=== PATIENT | female | born 1960 | race Caucasian/White ===

== ENCOUNTER 2016-10-30 19:24 | Inpatient (IN) | payer OTHER ==
[~2016-10-30] VITALS: Ht 160 cm; Wt 55.4 kg
[~2016-10-30 19:24] MED LIST: ACETAMINOPHEN650 M7 PO; ACID CONTROL75 MG; ADULT LOW DOSE81 M1 PO; ASCORBIC ACID250 MG PO; ASCORBIC ACID500 M3 PO; ASCORBIC ACID500 MG PO; ASPIRIN E.C.81 M1 PO; ATHENOL325 MG PO; ATIVAN1 MG PO; BACLOFEN10 MG PO; BACTRIM,SEPT1 TABLET PO; BICARSIM80 MG PO; BISA-LAX5 MG PO; BISAC-EVAC10 MG RC; BISACODYL SUPP10 MG PR; CALCIUM + D3 E1 EACH PO; CALCIUM 600+D1 EAC4 PO; CALCIUM 600+D31 EACH PO; CALTRATE 6001 TABLET PO; CENTRAL VITE T1 EACH PO; CHRONULAC,CEPHU30 ML PO; CIPRODEX OTIC7.5 ML BOTH EARS; CITRATE OF MAG296 ML PO; COL-RITE100 MG PO; COLACE100 MG PO; COMBIVENT INH14.7 GM; Combivent IH; DESYREL12.5 MG PO; DIAZEPAM10 MG PO; DULCOLAX10 MG PR; DUODERM CGF1 EACH TP; DUONEB 2.5-0.5 M3 ML PEP; DURAGESIC25 MCG TD; Dulcolax PO; Dulcolax PR; EFFEXOR50 MG PO; FENTANYL1 EAC5 TD; FERROUS SULFAT325 MG PO; FLEET ENEMA ADULT PR; FLOVENT 22120 INHALA; FLOVENT 22120 INHALA IH; FROVA2.5 MG PO; Flovent 220 mcg IH; GAS RELIEF 8080 MG PO; GAS-X80 MG PO; GLIPIZIDE10 M1 PO; GLUCOPHAGE XR1000 MG PO; GLUCOPHAGE1000 MG PO; GLUCOPHAGE500 MG PO; GLYCOLAX17 GM PO; IRON325 MG PO; KLONOPIN1 MG PO; LANTUS 10100 UNITS/ SC; LANTUS 3 M100 UNITS/ SC; LANTUS 3 M100 UNITS1 SC; LANTUS100 UNIT/1 SQ; LIORESAL10 MG PO; LYRICA50 MG PO; MAGIC BULLET10 MG RC; METRONIDAZOLE500 MG PO; MUCINEX600 MG PO; MULTIPLE VITAM1 EACH PO; MVI; NITROSTAT0.4 MG SL; NOVOLIN 70100 UNIT/1 SQ; NOVOLOG 10100 UNITS/ SC; NOVOLOG PE100 UNITS/ SC; NOVOLOG100 UNIT/1 SQ; OYST-CAL D, OS500 M1 PO; PROAIR RESPICL90 MCG IH; ROXICODONE5 MG PO; SENNA LAXATIVE8.6 MG PO; SENNA8.6 M1 PO; SENNA8.6 MG PO; SEROQUEL12.5 MG PO; SEROQUEL200 MG PO; SORE THROAT LO1 EACH MM; THERAGRAN1 TABLET PO; THERAPEUTIC M1 EAC1 PO; TRAMADOL HCL50 MG PO; TRAZODONE HCL50 MG PO; TRICOR145 MG PO; TYLENOL325 M1 PO; ULTRAM50 MG PO; VALIUM10 MG PO; VENTOLIN HFA18 GM IH; WOMEN'S LAXATIVE5 M1 PO; ZANTAC75 M1 PO; ZANTAC75 MG PO; ZOCOR10 MG PO; ZOSYN 3.3753.375 GM IV; [UNRECOGNIZED DRUG - OTHER]; [UNRECOGNIZED DRUG - OTHER] MM; [UNRECOGNIZED DRUG - OTHER] TP; [UNRECOGNIZED DRUG - REMARK] PO
[2016-10-30 20:47] LABS: CREATININE 0.7 mg/dL (0.6-1.3); POTASSIUM 4.4 mEq/L (3.7-5.4)
[2016-10-30 20:48] LABS: MCH 28.9 PG (29.0-34.0); MCHC 33.9 G/DL (30.0-36.0); MCV 85.1 FL (83-99); MEAN PLAT.VOLUME 10.6 uM^3 (9.5-12.4); PLATELET COUNT 411 K/uL (156-360); RBC DIS.WIDTH-SD 46.1 % (39-53); RED BLOOD COUNT 3.88 M/uL (3.80-5.20); WHITE BLOOD COUNT 23.1 K/uL (4.1-10.2)
[2016-10-30 20:51] LABS: EOSINOPHIL (%) 0.1 % (0-5); IMMATURE GRANULOCYTE (%) 0.7 % (0.0-0.7); IMMATURE GRANULOCYTE COUNT 1.6 K/uL; MONOCYTE (%) 6.1 % (3-12); MONOCYTE COUNT 1.4 K/uL (0-0.8); NEUTROPHIL (%) 88.5 % (45-76); NEUTROPHIL COUNT 20.4 K/uL (1.8-6.4)
[2016-10-30 20:56] LABS: CHLORIDE 105 mEq/L (99-109); POTASSIUM 4.4 mEq/L (3.7-5.4); SODIUM 134 mEq/L (136-147)
[2016-10-30 20:58] LABS: GLUCOSE 289 mg/dL (70-99)
[2016-10-30 21:00] LABS: ANION GAP 10 MEQ/L (2-14); TOTAL BILIRUBIN 0.4 mg/dL (0.0-1.0)
[2016-10-30 21:02] LABS: ALKALINE PHOSPHATASE 55 IU/L (3-129); GFR ESTIMATE (CALCULATED) > 59 mL/min/
[2016-10-30 21:03] LABS: UREA NITROGEN (BUN) 38 mg/dL (9-23)
[2016-10-30 21:05] LABS: LIPASE 38 U/L (1.0-51.0)
[2016-10-30 21:11] LABS: TROP-I INTERPRETATION NEGATIVE; TROPONIN-I < 0.01 ng/mL (0.0-0.30)
[2016-10-30 21:21] LABS: ADD MIUA? YES; BILIRUBIN NEGATIVE; BLOOD LARGE; COLOR DK YELLOW ((YELLOW)); GLUCOSE (STRIP) NEGATIVE; KETONES TRACE; LEUKOCYTES LARGE; NITRITE NEGATIVE; PH, URINE 5.5 (5-8); PROTEIN (STRIP) 100; SPECIFIC GRAVITY 1.019 (1.000-1.030); UROBILINOGEN 0.2 MG/DL (0.2-1.0)
[2016-10-30 21:41] LABS: EPITHELIAL CELLS RARE /HPF; MUCUS 1+ /LPF; RED BLOOD CELLS TNTC /HPF (0-5); WHITE BLOOD CELLS TNTC /HPF (0-5)
[2016-10-30 21:42] LABS: AMORPHOUS URATES CRYSTALS 2+; BACTERIA 1+ /HPF; CASTS PRESENT /LPF; CRYSTALS PRESENT; FINE GRANULAR CASTS 0-5 /LPF; UCUL ADDED? YES
[2016-10-30 23:31] VITALS: BP 104/54
[2016-10-31] VITALS (19 sets, daily range): BP systolic 86–136; BP diastolic 36–65
[2016-10-31 03:09] LABS: METH RESISTANT S AUREUS PCR NEGATIVE (NEGATIVE)
[2016-10-31 03:11] LABS: PROBE CHECK PASS; SPECIMEN PROCESSING CONTROL PASS
[2016-10-31 06:02] LABS: EOSINOPHIL (%) 0.1 % (0-5); HEMATOCRIT 29.2 % (36.0-46.0); IMMATURE GRANULOCYTE (%) 0.4 % (0.0-0.7); IMMATURE GRANULOCYTE COUNT 0.1 K/uL; LYMPHOCYTE COUNT 1.2 K/uL (1.0-2.8); MCH 28.2 PG (29.0-34.0); MCHC 32.9 G/DL (30.0-36.0); MCV 85.9 FL (83-99); MEAN PLAT.VOLUME 10.5 uM^3 (9.5-12.4); MONOCYTE (%) 6.6 % (3-12); NEUTROPHIL COUNT 12.5 K/uL (1.8-6.4); PLATELET COUNT 347 K/uL (156-360); RBC DIS.WIDTH-CV 15.6 % (11.8-14.6); RBC DIS.WIDTH-SD 48.7 % (39-53)
[2016-10-31 06:04] LABS: WHITE BLOOD COUNT 14.7 K/uL (4.1-10.2)
[2016-10-31 06:13] LABS: ALKALINE PHOSPHATASE 36 IU/L (3-129); ANION GAP 10 MEQ/L (2-14); CHLORIDE 109 MEQ/L (99-109); GFR ESTIMATE (CALCULATED) > 59 mL/min/; HDL CHOLESTEROL 30 MG/DL (Desirable>=50); LDL CHOLESTEROL 58 mg/dL (Desirable<100); NON-HDL CHOLESTEROL 99 mg/dL (Desirable<160); POTASSIUM 3.6 MEQ/L (3.7-5.4); SAMPLE HEMOLYSIS CHECK 0; SAMPLE ICTERIC CHECK 0; SAMPLE LIPEMIA CHECK 0; SODIUM 138 MEQ/L (136-147); TOTAL BILIRUBIN 0.3 MG/DL (0.0-1.0); TOTAL CHOLESTEROL 129 mg/dL (Desirable<200); TRIGLYCERIDES 205 MG/DL (Normal: <150); UREA NITROGEN (BUN) 27 mg/dL (9-23)
[2016-10-31 06:17] LABS: GLUCOSE 104 mg/dL (70-99)
[2016-10-31 12:17] LABS: POINT-OF-CARE METER ID UU14162636
[2016-10-31 16:17] LABS: C DIFF TOXIN NEGATIVE (NEGATIVE)
[2016-10-31 16:31] LABS: PROBE CHECK PASS; SPECIMEN PROCESSING CONTROL PASS
[2016-10-31 16:50] LABS: POINT-OF-CARE METER ID UU14162636
[2016-11-01] VITALS: BP 116/51
[2016-11-01 00:52] LABS: POINT-OF-CARE METER ID UU13113731; POINT-OF-CARE USER ID RADDRS44
[2016-11-01 04:00] VITALS: BP 99/35
[2016-11-01 07:34] LABS: Estimated Average Glucose 200 mg/dL (70-123); HEMOGLOBIN A1c (GLYCOHEMOGLOB) 8.6 % HGB (Below 5.7)
[2016-11-01 09:26] LABS: POINT-OF-CARE METER ID UU14162636
[2016-11-01 10:00] VITALS: BP 112/63
[2016-11-01 12:00] VITALS: BP 131/45
[2016-11-01 12:26] LABS: POINT-OF-CARE METER ID UU13113731
[2016-11-01 16:00] VITALS: BP 137/61
[2016-11-01 16:38] LABS: POINT-OF-CARE METER ID UU13113731
[2016-11-01 20:00] VITALS: BP 144/62
[2016-11-01 22:32] LABS: POINT-OF-CARE METER ID UU13113748
[2016-11-02] VITALS (7 sets, daily range): BP systolic 107–164; BP diastolic 57–85
[2016-11-02 13:47] LABS: POINT-OF-CARE METER ID UU13113748
[2016-11-02 18:08] LABS: POINT-OF-CARE METER ID UU13113803
[2016-11-03] VITALS (7 sets, daily range): BP systolic 113–169; BP diastolic 46–88
[2016-11-03 05:50] LABS: POINT-OF-CARE METER ID UU13113731
[2016-11-03 05:55] LABS: EOSINOPHIL COUNT 0.5 K/uL (0-0.3); HEMATOCRIT 24.2 % (36.0-46.0); IMMATURE GRANULOCYTE (%) 0.7 % (0.0-0.7); IMMATURE GRANULOCYTE COUNT 0.1 K/uL; LYMPHOCYTE COUNT 1.8 K/uL (1.0-2.8); MCH 28.1 PG (29.0-34.0); MCHC 33.5 G/DL (30.0-36.0); MEAN PLAT.VOLUME 9.9 uM^3 (9.5-12.4); MONOCYTE (%) 5.6 % (3-12); MONOCYTE COUNT 0.7 K/uL (0-0.8); NEUTROPHIL COUNT 9.2 K/uL (1.8-6.4); PLATELET COUNT 288 K/uL (156-360); RBC DIS.WIDTH-CV 15.4 % (11.8-14.6); RBC DIS.WIDTH-SD 48.1 % (39-53); RED BLOOD COUNT 2.88 M/uL (3.80-5.20); WHITE BLOOD COUNT 12.2 K/uL (4.1-10.2)
[2016-11-03 06:21] LABS: ANION GAP 10 MEQ/L (2-14); CHLORIDE 109 MEQ/L (99-109); GFR ESTIMATE (CALCULATED) > 59 mL/min/; GLUCOSE 140 mg/dL (70-99); POTASSIUM 2.9 MEQ/L (3.7-5.4); SAMPLE HEMOLYSIS CHECK 0; SAMPLE ICTERIC CHECK 0; SAMPLE LIPEMIA CHECK 0; SODIUM 137 MEQ/L (136-147); UREA NITROGEN (BUN) 9 mg/dL (9-23)
[2016-11-03] MEDS ORDERED: BACLOFEN10 MG PO (11:08)
[2016-11-03] MEDS ORDERED: LAXATIVE5 M1 PO ×2 (11:09→11:33)
[2016-11-03] MEDS ORDERED: CALCIUM 600 +1 EAC9 PO (11:10)
[2016-11-03] MEDS ORDERED: CERTAVITE WITH1 EAC1 PO (11:11)
[2016-11-03] MEDS ORDERED: CLONAZEPAM1 MG PO (11:11)
[2016-11-03] MEDS ORDERED: DIAZEPAM10 MG PO (11:12)
[2016-11-03] MEDS ORDERED: DOCUSATE SODIU100 MG PO (11:13)
[2016-11-03] MEDS ORDERED: DULCOLAX10 MG PR ×2 (11:13→11:15)
[2016-11-03] MEDS ORDERED: FENOFIBRATE145 M1 PO (11:16)
[2016-11-03] MEDS ORDERED: LANTUS 3 M100 UNITS1 SC ×2 (11:17→11:18)
[2016-11-03] MEDS ORDERED: SIMETHICONE80 MG PO (11:19)
[2016-11-03] MEDS ORDERED: NOVOLOG PE100 UNITS/ SC ×3 (11:22→11:25)
[2016-11-03] MEDS ORDERED: SENNA8.6 MG PO (11:26)
[2016-11-03] MEDS ORDERED: SIMVASTATIN10 MG PO (11:27)
[2016-11-03] MEDS ORDERED: TRAZODONE HCL50 MG PO (11:29)
[2016-11-03] MEDS ORDERED: ASCORBIC ACID500 M3 PO (11:30)
[2016-11-03] MEDS ORDERED: ACETAMINOPHEN325 M1 PO (11:31)
[2016-11-03] MEDS ORDERED: TRAMADOL HCL50 MG PO (11:34)
[2016-11-03 12:53] LABS: POINT-OF-CARE METER ID UU13113803
[2016-11-03 17:51] LABS: POINT-OF-CARE METER ID UU13113731
[2016-11-04] VITALS: BP 129/53
[2016-11-04 04:00] VITALS: BP 140/70
[2016-11-04 06:31] LABS: HEMATOCRIT 25.2 % (36.0-46.0); MCH 28.5 PG (29.0-34.0); MCHC 33.7 G/DL (30.0-36.0); MCV 84.6 FL (83-99); MEAN PLAT.VOLUME 10.4 uM^3 (9.5-12.4); PLATELET COUNT 322 K/uL (156-360); RBC DIS.WIDTH-CV 15.4 % (11.8-14.6); RBC DIS.WIDTH-SD 47.8 % (39-53); RED BLOOD COUNT 2.98 M/uL (3.80-5.20)
[2016-11-04 06:43] LABS: BASOPHIL COUNT 0.1 K/uL (0-0.1); EOSINOPHIL COUNT 0.5 K/uL (0-0.3); IMMATURE GRANULOCYTE COUNT 0.3 K/uL; LYMPHOCYTE COUNT 1.8 K/uL (1.0-2.8); MONOCYTE (%) 7.1 % (3-12); MONOCYTE COUNT 0.6 K/uL (0-0.8); NEUTROPHIL (%) 63.3 % (45-76); NEUTROPHIL COUNT 5.7 K/uL (1.8-6.4)
[2016-11-04 06:57] LABS: ANION GAP 10 MEQ/L (2-14); CHLORIDE 108 MEQ/L (99-109); GFR ESTIMATE (CALCULATED) > 59 mL/min/; GLUCOSE 194 mg/dL (70-99); SAMPLE HEMOLYSIS CHECK 0; SAMPLE ICTERIC CHECK 0; SAMPLE LIPEMIA CHECK 0; SODIUM 138 MEQ/L (136-147); UREA NITROGEN (BUN) 10 mg/dL (9-23)
[2016-11-04 06:59] LABS: POTASSIUM 3.9 MEQ/L (3.7-5.4)
[2016-11-04 07:04] LABS: HEMATOLOGY COMMENT 1 SMEAR COMPATIBLE; USER ID CCL
[2016-11-04 08:24] LABS: POINT-OF-CARE METER ID UU14174217; POINT-OF-CARE USER ID NUTJLF39
[2016-11-04 09:00] VITALS: BP 159/63
[2016-11-04 12:00] VITALS: BP 143/69
[2016-11-04 12:01] LABS: POINT-OF-CARE METER ID UU14174217; POINT-OF-CARE USER ID NUTJLF39
[2016-11-04 15:00] VITALS: BP 140/70
== END 2016-11-04 16:00 | disposition designated cancer center or children's hospital (05) | DRG 853 ==
LOC: EME → EDBD 19:24 → EME 19:24 → EDOF 22:51 → 4WEST 22:51
PROVIDERS: Emergency Medicine; Internal Medicine; Surgery
DX: A41.9 Sepsis, unspecified organism (principal); G82.50 Quadriplegia, unspecified; K56.60 Unspecified intestinal obstruction; N39.0 Urinary tract infection, site not specified; C64.2 Malignant neoplasm of left kidney, except renal pelvis; Z99.11 Dependence on respirator [ventilator] status; J96.10 Chronic respiratory failure, unspecified whether with hypoxia or hypercapnia; F33.9 Major depressive disorder, recurrent, unspecified; T17.590A Other foreign object in bronchus causing asphyxiation, initial encounter; C78.80 Secondary malignant neoplasm of unspecified digestive organ; Z93.0 Tracheostomy status; V89.9XXS Person injured in unspecified vehicle accident, sequela; E11.9 Type 2 diabetes mellitus without complications; N31.9 Neuromuscular dysfunction of bladder, unspecified; E78.5 Hyperlipidemia, unspecified; E87.6 Hypokalemia; D64.9 Anemia, unspecified; F41.9 Anxiety disorder, unspecified; Z87.891 Personal history of nicotine dependence; Z79.4 Long term (current) use of insulin; Z74.01 Bed confinement status; Y92.9 Unspecified place or not applicable
CPT/HCPCS: 71010; 71250; 74020; 74177; 80047; 80048; 80053; 80061; 80202; 81003; 82306; 82607; 82948; 83036; 83605; 83690; 84439; 84443; 84484; 85025; 87040; 87077; 87081; 87086; 87116; 87186; 87206; 87493; 87641; 94002; 94003; 94640; 94640 76; 99202; 99281; 99285; J1815; J2250; J2405; J2543; J3370; J3480; J7030; J7050

== ENCOUNTER → 2016-11-16 | Outpatient (CLI) | payer OTHER ==
[~2016-11-16] MED LIST changes: +ACETAMINOPHEN325 M1 PO; +CALCIUM 600 +1 EAC9 PO; +CERTAVITE WITH1 EAC1 PO; +CLONAZEPAM1 MG PO; +DOCUSATE SODIU100 MG PO; +FENOFIBRATE145 M1 PO; +LAXATIVE5 M1 PO; +SIMETHICONE80 MG PO; +SIMVASTATIN10 MG PO
== END ==
LOC: AMB 11-11 14:30
DX: Z51.11 Encounter for antineoplastic chemotherapy (principal); C64.2 Malignant neoplasm of left kidney, except renal pelvis; G82.50 Quadriplegia, unspecified; Z93.0 Tracheostomy status
CPT/HCPCS: 99212

== ENCOUNTER → 2016-12-15 | Outpatient (CLI) | payer OTHER | LOC: AMB 14:46 | DX: C64.9 Malignant neoplasm of unspecified kidney, except renal pelvis (principal); Z99.11 Dependence on respirator [ventilator] status; Z92.21 Personal history of antineoplastic chemotherapy | CPT/HCPCS: 94002; 99212 ==

== ENCOUNTER 2017-01-04 17:30 | Emergency (ER) | payer OTHER ==
[~2017-01-04] VITALS: Ht 160 cm; Wt 55.4 kg
[2017-01-04 18:21] LABS: ADD MIUA? YES; BILIRUBIN NEGATIVE; BLOOD NEGATIVE; COLOR YELLOW ((YELLOW)); GLUCOSE (STRIP) NEGATIVE; KETONES NEGATIVE; LEUKOCYTES LARGE; NITRITE NEGATIVE; PROTEIN (STRIP) 30; SPECIFIC GRAVITY 1.012 (1.000-1.030); UROBILINOGEN 0.2 MG/DL (0.2-1.0)
[2017-01-04 18:23] LABS: BACTERIA RARE /HPF; EPITHELIAL CELLS RARE /HPF; MUCUS NONE SEEN /LPF; UCUL ADDED? YES; UNCLASSIFIED CRYSTALS 2+ /HPF; WHITE BLOOD CELLS TNTC /HPF (0-5)
[2017-01-04 18:39] LABS: BASOPHIL COUNT 0.1 K/uL (0-0.1); EOSINOPHIL (%) 2.6 % (0-5); EOSINOPHIL COUNT 0.3 K/uL (0-0.3); HEMATOCRIT 33.3 % (36.0-46.0); IMMATURE GRANULOCYTE (%) 0.5 % (0.0-0.7); IMMATURE GRANULOCYTE COUNT 0.1 K/uL; INSTRUMENT ABS NEUTROPHIL CT 7.5 K/uL; LYMPHOCYTE COUNT 3.2 K/uL (1.0-2.8); MCH 28.8 PG (29.0-34.0); MCHC 33.9 G/DL (30.0-36.0); MCV 84.7 FL (83-99); MEAN PLAT.VOLUME 10.6 uM^3 (9.5-12.4); MONOCYTE (%) 5.7 % (3-12); MONOCYTE COUNT 0.7 K/uL (0-0.8); NEUTROPHIL COUNT 7.5 K/uL (1.8-6.4); PLATELET COUNT 410 K/uL (156-360); RBC DIS.WIDTH-CV 16.1 % (11.8-14.6); RBC DIS.WIDTH-SD 49.5 % (39-53); RED BLOOD COUNT 3.93 M/uL (3.80-5.20); WHITE BLOOD COUNT 11.8 K/uL (4.1-10.2)
[2017-01-04 18:48] LABS: CHLORIDE 102 mEq/L (99-109)
[2017-01-04 18:49] LABS: POTASSIUM 4.3 mEq/L (3.7-5.4); SODIUM 130 mEq/L (136-147)
[2017-01-04 18:51] LABS: GLUCOSE 197 mg/dL (70-99)
[2017-01-04 18:52] LABS: ANION GAP 11 MEQ/L (2-14)
[2017-01-04 18:53] LABS: TOTAL BILIRUBIN 0.2 mg/dL (0.0-1.0)
[2017-01-04 18:54] LABS: ALKALINE PHOSPHATASE 58 IU/L (3-129); GFR ESTIMATE (CALCULATED) > 59 mL/min/
[2017-01-04 18:56] LABS: UREA NITROGEN (BUN) 35 mg/dL (9-23)
[2017-01-04 19:36] LABS: SAMPLE HEMOLYSIS CHECK 0; SAMPLE ICTERIC CHECK 0; SAMPLE LIPEMIA CHECK 1
[2017-01-05 00:14] VITALS: BP 123/76
== END 2017-01-05 00:29 ==
LOC: EME → EDBD 17:30 → EME 17:30
PROVIDERS: Emergency Medicine
PROC: 5A0935Z Assistance with Respiratory Ventilation, Less than 24 Consecutive Hours (ICD-10-PCS; principal; 2017-01-04)
DX: D72.829 Elevated white blood cell count, unspecified (principal); J96.10 Chronic respiratory failure, unspecified whether with hypoxia or hypercapnia; N39.0 Urinary tract infection, site not specified; E11.9 Type 2 diabetes mellitus without complications; R79.89 Other specified abnormal findings of blood chemistry; Z93.0 Tracheostomy status; Z99.11 Dependence on respirator [ventilator] status; J45.909 Unspecified asthma, uncomplicated; G82.50 Quadriplegia, unspecified; N31.9 Neuromuscular dysfunction of bladder, unspecified; Z79.4 Long term (current) use of insulin
CPT/HCPCS: 71010; 80053; 81003; 82010; 82803; 83605; 85025; 87040; 87077; 87086; 87186; 94002; 99281; 99285; J7030

== ENCOUNTER → 2017-01-10 | Outpatient (CLI) | payer OTHER | LOC: RAD 09:30 | DX: C64.2 Malignant neoplasm of left kidney, except renal pelvis (principal); Z92.21 Personal history of antineoplastic chemotherapy; K76.0 Fatty (change of) liver, not elsewhere classified | CPT/HCPCS: 74177; 94799 ==

== ENCOUNTER → 2017-01-26 | Outpatient (CLI) | payer OTHER | LOC: AMB 01-12 14:30 | DX: C64.9 Malignant neoplasm of unspecified kidney, except renal pelvis (principal); I10 Essential (primary) hypertension; Z99.11 Dependence on respirator [ventilator] status | CPT/HCPCS: 94002; 99212 ==

== ENCOUNTER 2017-02-17 09:17 | Emergency (ER) | payer OTHER ==
[~2017-02-17] VITALS: Ht 157.5 cm; Wt 61.4 kg
[2017-02-17] MEDS ORDERED: CEPACOL SORE T1 EAC9 MM (09:27)
[2017-02-17] MEDS ORDERED: NOVOLOG PE100 UNITS/ SC ×2 (09:29)
[2017-02-17] MEDS ORDERED: PRINIVIL10 MG PO (09:30)
[2017-02-17] MEDS ORDERED: CATAPRES0.1 MG PO (09:32)
[2017-02-17] MEDS ORDERED: VOTRIENT200 MG PO (09:32)
[2017-02-17] MEDS ORDERED: SEROQUEL50 MG PO (09:33)
[2017-02-17] MEDS ORDERED: ZOFRAN ODT4 MG PO (09:33)
[2017-02-17] MEDS ORDERED: LIDODERM 5% P1 PATCH TD (09:34)
[2017-02-17] MEDS ORDERED: EFFEXOR37.5 MG PO (09:34)
[2017-02-17] MEDS ORDERED: SEROQUEL12.5 MG PO (09:34)
[2017-02-17] MEDS ORDERED: CALCIUM 600 +1 EAC2 PO (09:37)
[2017-02-17] MEDS ORDERED: VALIUM10 MG PO (09:38)
[2017-02-17] MEDS ORDERED: TYLENOL REGULA325 MG PO (09:40)
[2017-02-17] MEDS ORDERED: ULTRAM50 MG PO (09:40)
[2017-02-17] MEDS ORDERED: COLACE100 MG PO (09:42)
[2017-02-17] MEDS ORDERED: PROAIR HFA8.5 GM IH ×2 (09:50→09:51)
[2017-02-17] MEDS ORDERED: DUONEB 2.5-0.5 M3 ML AEROSOL (09:51)
[2017-02-17] MEDS ORDERED: FLOVENT 22120 INHALA IH (09:53)
[2017-02-17 10:04] LABS: MEAN PLAT.VOLUME 9.7 uM^3 (9.5-12.4); PLATELET COUNT 487 K/uL (156-360)
[2017-02-17 10:08] LABS: MCH 29.8 PG (29.0-34.0); MCV 90.3 FL (83-99); RBC DIS.WIDTH-CV 16.5 % (11.8-14.6); RBC DIS.WIDTH-SD 54.4 % (39-53); RED BLOOD COUNT 2.99 M/uL (3.80-5.20)
[2017-02-17 10:12] LABS: CHLORIDE 106 mEq/L (99-109); POTASSIUM 4.7 mEq/L (3.7-5.4); SODIUM 136 mEq/L (136-147)
[2017-02-17 10:14] LABS: GLUCOSE 241 mg/dL (70-99)
[2017-02-17 10:15] LABS: ANION GAP 13 MEQ/L (2-14)
[2017-02-17 10:18] LABS: GFR ESTIMATE (CALCULATED) > 59 mL/min/
[2017-02-17 10:19] LABS: UREA NITROGEN (BUN) 33 mg/dL (9-23)
[2017-02-17 10:25] LABS: ADD MIUA? YES; BILIRUBIN NEGATIVE; BLOOD MODERATE; COLOR YELLOW ((YELLOW)); GLUCOSE (STRIP) 150; KETONES NEGATIVE; LEUKOCYTES LARGE; NITRITE POSITIVE; PROTEIN (STRIP) 100; SPECIFIC GRAVITY 1.017 (1.000-1.030); UROBILINOGEN 0.2 MG/DL (0.2-1.0)
[2017-02-17 10:25] LABS: TROP-I INTERPRETATION NEGATIVE; TROPONIN-I 0.03 ng/mL (0.0-0.30)
[2017-02-17 10:38] LABS: BACTERIA 2+ /HPF; CALCIUM OXALATE CRYSTALS 2+ /HPF; EPITHELIAL CELLS 1+ /HPF; MUCUS 2+ /LPF; RED BLOOD CELLS 30-40 /HPF (0-5); UCUL ADDED? YES; WHITE BLOOD CELLS TNTC /HPF (0-5); WHITE BLOOD CELLS CLUMP FEW /HPF (0-5)
[2017-02-17 14:43] VITALS: BP 105/72
== END 2017-02-17 14:51 ==
LOC: EME → EDBD 09:17 → EME 14:51
PROVIDERS: Emergency Medicine
DX: A41.9 Sepsis, unspecified organism (principal); N39.0 Urinary tract infection, site not specified; J18.9 Pneumonia, unspecified organism; R65.20 Severe sepsis without septic shock; E86.0 Dehydration; I48.92 Unspecified atrial flutter; E11.9 Type 2 diabetes mellitus without complications; J45.909 Unspecified asthma, uncomplicated; Z79.4 Long term (current) use of insulin
CPT/HCPCS: 71010; 80048; 81003; 83605; 84484; 85027; 87040; 87070; 87077; 87086; 87186; 87205; 93005; 94002; 99281; 99285; J2543; J3370; J7030

== ENCOUNTER → 2017-03-30 | Outpatient (CLI) | payer OTHER ==
[~2017-03-30] MED LIST changes: +CALCIUM 600 +1 EAC2 PO; +CATAPRES0.1 MG PO; +CEPACOL SORE T1 EAC9 MM; +DUONEB 2.5-0.5 M3 ML AEROSOL; +EFFEXOR37.5 MG PO; +LIDODERM 5% P1 PATCH TD; +PRINIVIL10 MG PO; +PROAIR HFA8.5 GM IH; +SEROQUEL50 MG PO; +TYLENOL REGULA325 MG PO; +VOTRIENT200 MG PO; +ZOFRAN ODT4 MG PO
== END | disposition home or self-care (01) ==
LOC: AMB 14:42
DX: C64.9 Malignant neoplasm of unspecified kidney, except renal pelvis (principal); G82.50 Quadriplegia, unspecified; D50.9 Iron deficiency anemia, unspecified; E78.5 Hyperlipidemia, unspecified; E11.9 Type 2 diabetes mellitus without complications; Z79.4 Long term (current) use of insulin; F41.9 Anxiety disorder, unspecified
CPT/HCPCS: 99212

== ENCOUNTER → 2017-04-27 | Outpatient (CLI) | payer OTHER | LOC: AMB 14:30 | DX: C64.2 Malignant neoplasm of left kidney, except renal pelvis (principal); J95.822 Acute and chronic postprocedural respiratory failure; Z99.11 Dependence on respirator [ventilator] status | CPT/HCPCS: 94002; 99212 ==

== ENCOUNTER → 2017-05-03 | Outpatient (CLI) | payer OTHER | LOC: RAD 10:38 | DX: C64.2 Malignant neoplasm of left kidney, except renal pelvis (principal) | CPT/HCPCS: 74177; 94002 ==

== ENCOUNTER 2017-05-27 22:19 | Emergency (ER) | payer OTHER ==
[~2017-05-27] VITALS: Ht 157.5 cm; Wt 62.3 kg
[2017-05-27 23:04] LABS: POINT-OF-CARE METER ID UU13113747
[2017-05-27 23:08] LABS: ADD MIUA? YES; BILIRUBIN NEGATIVE; BLOOD NEGATIVE; COLOR YELLOW ((YELLOW)); GLUCOSE (STRIP) 50; KETONES NEGATIVE; LEUKOCYTES MODERATE; NITRITE NEGATIVE; PROTEIN (STRIP) 100; SPECIFIC GRAVITY 1.017 (1.000-1.030); UROBILINOGEN 0.2 MG/DL (0.2-1.0)
[2017-05-27 23:17] LABS: EOSINOPHIL (%) 0.8 % (0-5); EOSINOPHIL COUNT 0.1 K/uL (0-0.3); HEMATOCRIT 28.6 % (36.0-46.0); IMMATURE GRANULOCYTE (%) 0.4 % (0.0-0.7); IMMATURE GRANULOCYTE COUNT 0.1 K/uL; INSTRUMENT ABS NEUTROPHIL CT 9.5 K/uL; LYMPHOCYTE COUNT 3.2 K/uL (1.0-2.8); MCH 30.9 PG (29.0-34.0); MCHC 34.3 G/DL (30.0-36.0); MCV 90.2 FL (83-99); MEAN PLAT.VOLUME 9.6 uM^3 (9.5-12.4); MONOCYTE (%) 5.2 % (3-12); MONOCYTE COUNT 0.7 K/uL (0-0.8); NEUTROPHIL (%) 70.1 % (45-76); NEUTROPHIL COUNT 9.5 K/uL (1.8-6.4); PLATELET COUNT 346 K/uL (156-360); RBC DIS.WIDTH-CV 15.9 % (11.8-14.6); RBC DIS.WIDTH-SD 51.9 % (39-53); RED BLOOD COUNT 3.17 M/uL (3.80-5.20); WHITE BLOOD COUNT 13.6 K/uL (4.1-10.2)
[2017-05-27 23:25] LABS: BACTERIA 3+ /HPF; CASTS PRESENT /LPF; CRYSTALS PRESENT; EPITHELIAL CELLS RARE /HPF; MUCUS NONE SEEN /LPF; RED BLOOD CELLS NONE SEEN /HPF (0-5); UCUL ADDED? YES; WHITE BLOOD CELLS TNTC /HPF (0-5)
[2017-05-27 23:26] LABS: AMORPHOUS URATES CRYSTALS 2+; HYALINE CASTS 0-5 /LPF
[2017-05-27 23:30] LABS: CHLORIDE 105 mEq/L (99-109); POTASSIUM 4.7 mEq/L (3.7-5.4); SODIUM 131 mEq/L (136-147)
[2017-05-27 23:32] LABS: GLUCOSE 125 mg/dL (70-99)
[2017-05-27 23:33] LABS: ANION GAP 8 MEQ/L (2-14)
[2017-05-27 23:34] LABS: TOTAL BILIRUBIN 0.3 mg/dL (0.0-1.0)
[2017-05-27 23:35] LABS: ALKALINE PHOSPHATASE 60 IU/L (3-129)
[2017-05-27 23:36] LABS: GFR ESTIMATE (CALCULATED) > 59 mL/min/
[2017-05-27 23:37] LABS: UREA NITROGEN (BUN) 24 mg/dL (9-23)
[2017-05-27 23:38] LABS: TROP-I INTERPRETATION NEGATIVE; TROPONIN-I 0.02 ng/mL (0.0-0.30)
[2017-05-27 23:39] LABS: BASE EXCESS -4.6 mEq/L (-3 to +3); BICARBONATE 17.2 mEq/L (22-26); CARBOXY HGB 1.4 % (0-5); METHEMOGLOBIN 1.2 % (0-1.5); PCO2 22 mm Hg (35-45); PO2 117 mm Hg (80-100)
[2017-05-27 23:40] LABS: COMMENTS - BLOOD GASES C+A+; DEVICE VENT; FI02 28 %; MECHANICAL RATE 16 resp/min; MODE AC; PEEP 5 CM/H20; SITE RR; TIDAL VOLUME 600 ML; TOTAL RESP RATE 16 resp/min
[2017-05-28] MEDS ORDERED: FLOVENT 22120 INHALA IH (01:01)
[2017-05-28] MEDS ORDERED: VANCOMYCIN1 GM/200 M IV (03:19)
[2017-05-28] MEDS ORDERED: ZOSYN 3.3753.375 GM IV (03:19)
[2017-05-28 05:54] VITALS: BP 127/67
== END 2017-05-28 06:15 | disposition designated cancer center or children's hospital (05) ==
LOC: EME → EDBD 22:19 → EME 05-28 06:15
PROVIDERS: Emergency Medicine
DX: N39.0 Urinary tract infection, site not specified (principal); I95.9 Hypotension, unspecified; J96.10 Chronic respiratory failure, unspecified whether with hypoxia or hypercapnia; Z93.0 Tracheostomy status; J45.909 Unspecified asthma, uncomplicated; E11.9 Type 2 diabetes mellitus without complications; Z79.4 Long term (current) use of insulin; G82.50 Quadriplegia, unspecified; Z85.528 Personal history of other malignant neoplasm of kidney
CPT/HCPCS: 36600; 70450; 71010; 80053; 81003; 82803; 82948; 83605; 83880; 84484; 85025; 86850; 86900; 86901; 87040; 87086; 93005; 94002; 94003; 99281; 99285; J2310; J2543; J3370; J7030

== ENCOUNTER 2017-06-25 11:14 | Inpatient (IN) | payer OTHER ==
[~2017-06-25] VITALS: Ht 154.9 cm; Wt 65.0 kg
[~2017-06-25 11:14] MED LIST changes: +VANCOMYCIN1 GM/200 M IV
[2017-06-25 13:10] LABS: HEMATOCRIT 39.8 % (36.0-46.0); MCHC 33.7 G/DL (30.0-36.0); MCV 92.1 FL (83-99); MEAN PLAT.VOLUME 10.6 uM^3 (9.5-12.4); PLATELET COUNT 288 K/uL (156-360); RBC DIS.WIDTH-CV 15.6 % (11.8-14.6); RBC DIS.WIDTH-SD 51.8 % (39-53); WHITE BLOOD COUNT 13.8 K/uL (4.1-10.2)
[2017-06-25 13:13] LABS: RED BLOOD COUNT 4.32 M/uL (3.80-5.20)
[2017-06-25 13:17] LABS: CHLORIDE 107 mEq/L (99-109); POTASSIUM 5.1 mEq/L (3.7-5.4); SODIUM 132 mEq/L (136-147)
[2017-06-25 13:18] LABS: GLUCOSE 242 mg/dL (70-99)
[2017-06-25 13:20] LABS: ANION GAP 11 MEQ/L (2-14)
[2017-06-25 13:22] LABS: GFR ESTIMATE (CALCULATED) 54 mL/min/
[2017-06-25 13:23] LABS: UREA NITROGEN (BUN) 48 mg/dL (9-23)
[2017-06-25 13:29] LABS: TROP-I INTERPRETATION NEGATIVE; TROPONIN-I 0.07 ng/mL (0.0-0.30)
[2017-06-25 14:03] LABS: CARBON DIOXIDE (BICARBONATE) 15.4 MEQ/L (20-31)
[2017-06-25] MEDS ORDERED: ROXICODONE5 MG PO (14:41)
[2017-06-25 15:34] LABS: CARBON DIOXIDE (BICARBONATE) 16.4 MEQ/L (20-31)
[2017-06-25 20:00] VITALS: BP 100/75
[2017-06-25 20:05] VITALS: BP 100/75
[2017-06-25 20:41] LABS: ADD MIUA? YES; BILIRUBIN NEGATIVE; BLOOD NEGATIVE; COLOR YELLOW ((YELLOW)); GLUCOSE (STRIP) NEGATIVE; KETONES NEGATIVE; LEUKOCYTES MODERATE; NITRITE NEGATIVE; PROTEIN (STRIP) NEGATIVE; UROBILINOGEN 0.2 MG/DL (0.2-1.0)
[2017-06-25 21:00] VITALS: BP 74/63
[2017-06-25 21:17] LABS: BACTERIA 2+ /HPF; EPITHELIAL CELLS RARE /HPF; MUCUS RARE /LPF; RED BLOOD CELLS 0-5 /HPF (0-5); UCUL ADDED? YES; WHITE BLOOD CELLS 20-30 /HPF (0-5)
[2017-06-25 21:18] LABS: HYALINE CASTS 0-5 /LPF
[2017-06-25 21:34] LABS: EOSINOPHIL (%) 0.7 % (0-5); EOSINOPHIL COUNT 0.1 K/uL (0-0.3); HEMATOCRIT 36.5 % (36.0-46.0); IMMATURE GRANULOCYTE (%) 0.6 % (0.0-0.7); IMMATURE GRANULOCYTE COUNT 0.1 K/uL; INSTRUMENT ABS NEUTROPHIL CT 8.4 K/uL; LYMPHOCYTE COUNT 0.5 K/uL (1.0-2.8); MCH 31.3 PG (29.0-34.0); MCHC 34.2 G/DL (30.0-36.0); MCV 91.5 FL (83-99); MONOCYTE (%) 5.3 % (3-12); MONOCYTE COUNT 0.5 K/uL (0-0.8); NEUTROPHIL (%) 88.4 % (45-76); NEUTROPHIL COUNT 8.4 K/uL (1.8-6.4); RBC DIS.WIDTH-CV 15.7 % (11.8-14.6); RBC DIS.WIDTH-SD 51.4 % (39-53); RED BLOOD COUNT 3.99 M/uL (3.80-5.20); WHITE BLOOD COUNT 9.5 K/uL (4.1-10.2)
[2017-06-25 21:37] LABS: METH RESISTANT S AUREUS PCR NEGATIVE (NEGATIVE); PROBE CHECK PASS; SPECIMEN PROCESSING CONTROL PASS
[2017-06-25 22:00] VITALS: BP 121/74
[2017-06-25 22:09] LABS: C DIFF TOXIN NEGATIVE (NEGATIVE)
[2017-06-25 22:10] LABS: PROBE CHECK PASS; SPECIMEN PROCESSING CONTROL PASS
[2017-06-25 22:43] LABS: PLAT.SUFFICIENCY ADEQUATE; PLATELET CLUMPS PRESENT - PLATELET COUNT APPEARS ADQ.; PLATELET COUNT UNABLE TO REPORT K/uL (156-360)
[2017-06-25 23:00] VITALS: BP 147/84
[2017-06-25 23:41] LABS: INTER. NORMALIZED RATIO 0.9; PROTHROMBIN TIME 10.2 SEC (10.2-12.9)
[2017-06-25 23:42] LABS: CHLORIDE 114 MEQ/L (99-109); GFR ESTIMATE (CALCULATED) > 59 mL/min/; SAMPLE HEMOLYSIS CHECK 1; SAMPLE ICTERIC CHECK 0; SAMPLE LIPEMIA CHECK 0; SODIUM 138 MEQ/L (136-147); UREA NITROGEN (BUN) 35 mg/dL (9-23)
[2017-06-25 23:43] LABS: PTT 25.3 SEC (25-37)
[2017-06-25 23:52] LABS: ANION GAP 12 MEQ/L (2-14)
[2017-06-25 23:54] LABS: GLUCOSE 68 mg/dL (70-99)
[2017-06-26] VITALS (11 sets, daily range): BP systolic 112–144; BP diastolic 62–87
[2017-06-26] LABS: POTASSIUM 4.1 MEQ/L (3.7-5.4)
[2017-06-26 00:06] LABS: MAGNESIUM 1.6 mg/dl (1.3-2.7)
[2017-06-26 09:08] LABS: ANION GAP 11 MEQ/L (2-14); CHLORIDE 117 MEQ/L (99-109); GFR ESTIMATE (CALCULATED) > 59 mL/min/; GLUCOSE 72 mg/dL (70-99); POTASSIUM 3.6 MEQ/L (3.7-5.4); SAMPLE HEMOLYSIS CHECK 0; SAMPLE ICTERIC CHECK 0; SAMPLE LIPEMIA CHECK 0; SODIUM 142 MEQ/L (136-147); UREA NITROGEN (BUN) 29 mg/dL (9-23)
[2017-06-26 12:15] LABS: POINT-OF-CARE METER ID UU14162636
[2017-06-26 17:29] LABS: POINT-OF-CARE METER ID UU14162636
[2017-06-26 22:30] LABS: POINT-OF-CARE METER ID UU14174217; POINT-OF-CARE USER ID RADDRS44
[2017-06-26 23:56] LABS: CHLORIDE 111 mEq/L (99-109); POTASSIUM 4.2 mEq/L (3.7-5.4); SODIUM 136 mEq/L (136-147)
[2017-06-26 23:59] LABS: ANION GAP 10 MEQ/L (2-14); GLUCOSE 223 mg/dL (70-99)
[2017-06-27] VITALS: BP 119/75
[2017-06-27 00:01] LABS: GFR ESTIMATE (CALCULATED) > 59 mL/min/
[2017-06-27 00:02] LABS: UREA NITROGEN (BUN) 21 mg/dL (9-23)
[2017-06-27 04:00] VITALS: BP 99/64
[2017-06-27 06:18] LABS: HEMATOCRIT 21.9 % (36.0-46.0); MCH 32.4 PG (29.0-34.0); MCHC 33.3 G/DL (30.0-36.0); MEAN PLAT.VOLUME 10.4 uM^3 (9.5-12.4); RBC DIS.WIDTH-CV 16.5 % (11.8-14.6); RBC DIS.WIDTH-SD 57.9 % (39-53); WHITE BLOOD COUNT 4.6 K/uL (4.1-10.2)
[2017-06-27 06:20] LABS: MCV 97.3 FL (83-99); PLATELET COUNT 132 K/uL (156-360); RED BLOOD COUNT 2.25 M/uL (3.80-5.20)
[2017-06-27 06:42] LABS: ANION GAP 12 MEQ/L (2-14); CHLORIDE 113 MEQ/L (99-109); GFR ESTIMATE (CALCULATED) > 59 mL/min/; GLUCOSE 145 mg/dL (70-99); POTASSIUM 4.5 MEQ/L (3.7-5.4); SAMPLE HEMOLYSIS CHECK 0; SAMPLE ICTERIC CHECK 0; SAMPLE LIPEMIA CHECK 0; SODIUM 137 MEQ/L (136-147); UREA NITROGEN (BUN) 16 mg/dL (9-23)
[2017-06-27 08:00] VITALS: BP 96/52
[2017-06-27 09:53] LABS: MAGNESIUM 1.1 mg/dl (1.3-2.7)
[2017-06-27 10:29] LABS: POINT-OF-CARE METER ID UU13113731
[2017-06-27 11:33] LABS: HEMATOCRIT 27.1 % (36.0-46.0)
[2017-06-27 11:34] LABS: MCV 92.8 FL (83-99)
[2017-06-27 12:00] VITALS: BP 122/64
[2017-06-27 13:00] LABS: POINT-OF-CARE METER ID UU14162636
[2017-06-27 16:00] VITALS: BP 111/63
[2017-06-27 18:02] LABS: POINT-OF-CARE METER ID UU14162636
[2017-06-27 20:00] VITALS: BP 145/78
[2017-06-28] VITALS (7 sets, daily range): BP systolic 103–133; BP diastolic 59–75
[2017-06-28 00:09] LABS: POINT-OF-CARE METER ID UU14162636; POINT-OF-CARE USER ID RADDRS44
[2017-06-28 04:49] LABS: CARBON DIOXIDE (BICARBONATE) 18.9 MEQ/L (20-31)
[2017-06-28 06:24] LABS: ANION GAP 11 MEQ/L (2-14); CHLORIDE 109 MEQ/L (99-109); GFR ESTIMATE (CALCULATED) > 59 mL/min/; POTASSIUM 4.7 MEQ/L (3.7-5.4); SAMPLE HEMOLYSIS CHECK 1; SAMPLE ICTERIC CHECK 0; SAMPLE LIPEMIA CHECK 1; SODIUM 134 MEQ/L (136-147); UREA NITROGEN (BUN) 13 mg/dL (9-23)
[2017-06-28 06:25] LABS: GLUCOSE 284 mg/dL (70-99); MAGNESIUM 2.3 mg/dl (1.3-2.7)
[2017-06-28 11:03] LABS: INTACT PARATHYROID HORMONE 61 pg/mL (10-69)
[2017-06-28 13:10] LABS: POINT-OF-CARE METER ID UU13113731
[2017-06-28 18:02] LABS: POINT-OF-CARE METER ID UU13113731
[2017-06-29] VITALS: BP 157/89
[2017-06-29 04:00] VITALS: BP 140/69
[2017-06-29 05:56] LABS: HEMATOCRIT 29.2 % (36.0-46.0); MCH 32.4 PG (29.0-34.0); MCHC 33.9 G/DL (30.0-36.0); MCV 95.4 FL (83-99); MEAN PLAT.VOLUME 10.1 uM^3 (9.5-12.4); RBC DIS.WIDTH-CV 16.5 % (11.8-14.6)
[2017-06-29 06:11] LABS: PLATELET COUNT 254 K/uL (156-360); RED BLOOD COUNT 3.06 M/uL (3.80-5.20)
[2017-06-29 06:27] LABS: ANION GAP 9 MEQ/L (2-14); CHLORIDE 102 MEQ/L (99-109); GFR ESTIMATE (CALCULATED) 49 mL/min/; GLUCOSE 480 mg/dL (70-99); POTASSIUM 4.8 MEQ/L (3.7-5.4); SAMPLE HEMOLYSIS CHECK 0; SAMPLE ICTERIC CHECK 0; SAMPLE LIPEMIA CHECK 0; SODIUM 132 MEQ/L (136-147); UREA NITROGEN (BUN) 23 mg/dL (9-23)
[2017-06-29 08:00] VITALS: BP 175/89
[2017-06-29] MEDS ORDERED: ZOSYN 3.3753.375 GM IV (08:14)
[2017-06-29] MEDS ORDERED: NABI650T PO (08:17)
[2017-06-29] MEDS ORDERED: ERGOCALCIF50000 UNIT PO (08:19)
[2017-06-29 09:00] VITALS: BP 157/84
[2017-06-29 10:00] VITALS: BP 123/66
[2017-06-30 07:51] LABS: POINT-OF-CARE METER ID UU14162636
[2017-06-30 08:00] LABS: POINT-OF-CARE METER ID UU13113731
== END 2017-06-29 11:58 | DRG 871 ==
LOC: EME → EDBD 11:14 → EME 11:14 → EDOF 16:15 → 4WEST 16:15 → ENRESERV 16:17 → 4WEST 19:31 → ENPENDDIS 06-29 11:42 → 4WEST 06-29 11:58
PROVIDERS: Emergency Medicine; Hospitalist; Internal Medicine; Internal Medicine Pulmonary Disease; Physician Assistant
PROC: 5A1945Z Respiratory Ventilation, 24-96 Consecutive Hours (ICD-10-PCS; principal; 2017-06-25)
DX: A41.9 Sepsis, unspecified organism (principal); E87.2 Acidosis; E11.649 Type 2 diabetes mellitus with hypoglycemia without coma; C64.9 Malignant neoplasm of unspecified kidney, except renal pelvis; K52.9 Noninfective gastroenteritis and colitis, unspecified; N17.9 Acute kidney failure, unspecified; G82.50 Quadriplegia, unspecified; R57.9 Shock, unspecified; Z99.11 Dependence on respirator [ventilator] status; J96.10 Chronic respiratory failure, unspecified whether with hypoxia or hypercapnia; E87.4 Mixed disorder of acid-base balance; E78.5 Hyperlipidemia, unspecified; E83.51 Hypocalcemia; E83.52 Hypercalcemia; I10 Essential (primary) hypertension; D63.8 Anemia in other chronic diseases classified elsewhere; E83.42 Hypomagnesemia; E86.1 Hypovolemia; E87.6 Hypokalemia; J45.909 Unspecified asthma, uncomplicated; F41.9 Anxiety disorder, unspecified; F60.3 Borderline personality disorder; F32.9 Major depressive disorder, single episode, unspecified; E83.39 Other disorders of phosphorus metabolism; N25.89 Other disorders resulting from impaired renal tubular function; N31.9 Neuromuscular dysfunction of bladder, unspecified; T45.1X5A Adverse effect of antineoplastic and immunosuppressive drugs, initial encounter; Z46.6 Encounter for fitting and adjustment of urinary device; Z93.0 Tracheostomy status; Z79.4 Long term (current) use of insulin; Z85.528 Personal history of other malignant neoplasm of kidney; Z87.891 Personal history of nicotine dependence
CPT/HCPCS: 36600; 71010; 80048; 80048 91; 80069; 80202; 81003; 82040; 82306; 82330; 82436; 82803; 82948; 83605; 83735; 83880; 83935; 83970; 84100; 84133; 84300; 84484; 84999; 85014; 85018; 85025; 85027; 85610; 85730; 87040; 87070; 87077; 87081; 87086; 87186; 87205; 87493; 87641; 87801; 93005; 94002; 94003; 94640; 94640 76; 99202; 99281; 99285; J1650; J1815; J2543; J3370; J3475; J7030; J7050; J7120; P9047

== ENCOUNTER → 2017-07-06 | Outpatient (CLI) | payer OTHER ==
[~2017-07-06] MED LIST changes: +ERGOCALCIF50000 UNIT PO; +NABI650T PO
== END ==
LOC: AMB 13:30
DX: C64.2 Malignant neoplasm of left kidney, except renal pelvis (principal); I10 Essential (primary) hypertension; R14.0 Abdominal distension (gaseous); D64.9 Anemia, unspecified; G82.50 Quadriplegia, unspecified; G89.3 Neoplasm related pain (acute) (chronic); Z99.11 Dependence on respirator [ventilator] status
CPT/HCPCS: 94002; 99212

== ENCOUNTER → 2017-08-31 | Outpatient (CLI) | payer OTHER ==
[~2017-08-31] MED LIST changes: +MAGNESIUM400 M1 PO; +PROCARDIA XL90 MG PO; +SORE THROAT LO1 EAC2 MM; +VITAMIN D-32000 UNI2 PO
== END ==
LOC: AMB 15:22
DX: C64.9 Malignant neoplasm of unspecified kidney, except renal pelvis (principal); Z99.11 Dependence on respirator [ventilator] status; Z93.0 Tracheostomy status
CPT/HCPCS: 99212

== ENCOUNTER 2017-09-03 21:33 | Inpatient (IN) | payer OTHER ==
[~2017-09-03] VITALS: Ht 162.6 cm; Wt 60.7 kg
[~2017-09-03 21:33] MED LIST changes: -MAGNESIUM400 M1 PO; -PROCARDIA XL90 MG PO; -SORE THROAT LO1 EAC2 MM; -VITAMIN D-32000 UNI2 PO
[2017-09-03 22:18] LABS: EOSINOPHIL (%) 1.3 % (0-5); EOSINOPHIL COUNT 0.2 K/uL (0-0.3); HEMATOCRIT 38.1 % (36.0-46.0); IMMATURE GRANULOCYTE (%) 0.8 % (0.0-0.7); IMMATURE GRANULOCYTE COUNT 0.1 K/uL; INSTRUMENT ABS NEUTROPHIL CT 11.5 K/uL; MCH 32.3 PG (29.0-34.0); MCHC 34.9 G/DL (30.0-36.0); MCV 92.5 FL (83-99); MEAN PLAT.VOLUME 10.1 uM^3 (9.5-12.4); MONOCYTE (%) 5.6 % (3-12); MONOCYTE COUNT 0.8 K/uL (0-0.8); NEUTROPHIL (%) 78.7 % (45-76); NEUTROPHIL COUNT 11.5 K/uL (1.8-6.4); NRBC (%) 0.1 /100 WBC (0-0); PLATELET COUNT 368 K/uL (156-360); RBC DIS.WIDTH-CV 16.5 % (11.8-14.6); RBC DIS.WIDTH-SD 55.7 % (39-53); RED BLOOD COUNT 4.12 M/uL (3.80-5.20); WHITE BLOOD COUNT 14.6 K/uL (4.1-10.2)
[2017-09-03 22:29] LABS: ADD MIUA? YES; BILIRUBIN NEGATIVE; BLOOD NEGATIVE; COLOR YELLOW ((YELLOW)); GLUCOSE (STRIP) >=500; KETONES NEGATIVE; LEUKOCYTES SMALL; NITRITE NEGATIVE; PROTEIN (STRIP) >=500; SPECIFIC GRAVITY 1.017 (1.000-1.030); UROBILINOGEN 0.2 MG/DL (0.2-1.0)
[2017-09-03 22:39] LABS: BACTERIA RARE /HPF; EPITHELIAL CELLS RARE /HPF; MUCUS TRACE /LPF; RED BLOOD CELLS 0-5 /HPF (0-5); UCUL ADDED? YES; WHITE BLOOD CELLS TNTC /HPF (0-5)
[2017-09-03 22:42] LABS: ANION GAP 12 MEQ/L (2-14); CHLORIDE 98 MEQ/L (99-109); POTASSIUM 5.3 MEQ/L (3.7-5.4); SAMPLE HEMOLYSIS CHECK 1; SAMPLE ICTERIC CHECK 0; SAMPLE LIPEMIA CHECK 2; SODIUM 129 MEQ/L (136-147); TOTAL BILIRUBIN 0.4 MG/DL (0.0-1.0)
[2017-09-03 22:48] LABS: ALKALINE PHOSPHATASE 114 IU/L (3-129); GFR ESTIMATE (CALCULATED) 54 mL/min/; GLUCOSE 393 mg/dL (70-99); UREA NITROGEN (BUN) 36 mg/dL (9-23)
[2017-09-03 22:51] LABS: TROP-I INTERPRETATION NEGATIVE; TROPONIN-I < 0.01 ng/mL (0.0-0.30)
[2017-09-03 23:12] LABS: BASE EXCESS -5.3 mEq/L (-3 to +3); BICARBONATE 18.9 mEq/L (22-26); CARBOXY HGB 0.1 % (0-5); METHEMOGLOBIN 1.3 % (0-1.5); PO2 97 mm Hg (80-100)
[2017-09-03 23:13] LABS: COMMENTS - BLOOD GASES C+A+; DEVICE VENTILATOR; FI02 30 %; MECHANICAL RATE 16 resp/min; MODE A/C; PCO2 32 mm Hg (35-45); PEEP 5 CM/H20; SITE RR; TIDAL VOLUME 600 ML; TOTAL RESP RATE 16 resp/min; pH 7.38 (7.35-7.45)
[2017-09-04] VITALS (12 sets, daily range): BP systolic 106–158; BP diastolic 63–97
[2017-09-04] MEDS ORDERED: PROCARDIA XL90 MG PO (00:13)
[2017-09-04] MEDS ORDERED: LANTUS 3 M100 UNITS1 SC (00:14)
[2017-09-04] MEDS ORDERED: VITAMIN D-32000 UNI2 PO (00:14)
[2017-09-04] MEDS ORDERED: MAGNESIUM400 M1 PO (00:15)
[2017-09-04] MEDS ORDERED: SORE THROAT LO1 EAC2 MM (00:17)
[2017-09-04] MEDS ORDERED: DUONEB 2.5-0.5 M3 ML AEROSOL (00:18)
[2017-09-04 04:03] LABS: METH RESISTANT S AUREUS PCR NEGATIVE (NEGATIVE); PROBE CHECK PASS; SPECIMEN PROCESSING CONTROL PASS
[2017-09-04 09:14] LABS: HEMATOCRIT 33.4 % (36.0-46.0); MCHC 33.8 G/DL (30.0-36.0); MCV 94.6 FL (83-99); MEAN PLAT.VOLUME 10.3 uM^3 (9.5-12.4); PLATELET COUNT 365 K/uL (156-360); RBC DIS.WIDTH-CV 16.9 % (11.8-14.6); RBC DIS.WIDTH-SD 58.7 % (39-53); RED BLOOD COUNT 3.53 M/uL (3.80-5.20); WHITE BLOOD COUNT 11.1 K/uL (4.1-10.2)
[2017-09-04 09:58] LABS: ANION GAP 12 MEQ/L (2-14); CHLORIDE 102 MEQ/L (99-109); GFR ESTIMATE (CALCULATED) > 59 mL/min/; GLUCOSE 386 mg/dL (70-99); POTASSIUM 4.3 MEQ/L (3.7-5.4); SAMPLE HEMOLYSIS CHECK 2; SAMPLE ICTERIC CHECK 0; SAMPLE LIPEMIA CHECK 2; SODIUM 130 MEQ/L (136-147); UREA NITROGEN (BUN) 28 mg/dL (9-23)
[2017-09-04 13:26] LABS: POINT-OF-CARE METER ID UU14314083
[2017-09-05] VITALS: BP 98/62
[2017-09-05 04:00] VITALS: BP 84/64
[2017-09-05 05:54] LABS: HEMATOCRIT 29.6 % (36.0-46.0); MCH 30.6 PG (29.0-34.0); MCHC 32.8 G/DL (30.0-36.0); MCV 93.4 FL (83-99); MEAN PLAT.VOLUME 10.3 uM^3 (9.5-12.4); PLATELET COUNT 310 K/uL (156-360); RBC DIS.WIDTH-CV 16.9 % (11.8-14.6); RBC DIS.WIDTH-SD 57.4 % (39-53); RED BLOOD COUNT 3.17 M/uL (3.80-5.20); WHITE BLOOD COUNT 8.8 K/uL (4.1-10.2)
[2017-09-05 06:24] LABS: ANION GAP 9 MEQ/L (2-14); CHLORIDE 106 MEQ/L (99-109); GFR ESTIMATE (CALCULATED) > 59 mL/min/; GLUCOSE 262 mg/dL (70-99); POTASSIUM 4.2 MEQ/L (3.7-5.4); SAMPLE HEMOLYSIS CHECK 0; SAMPLE ICTERIC CHECK 0; SAMPLE LIPEMIA CHECK 0; SODIUM 132 MEQ/L (136-147); UREA NITROGEN (BUN) 19 mg/dL (9-23)
[2017-09-05 08:00] VITALS: BP 122/60
[2017-09-05 14:11] LABS: POINT-OF-CARE METER ID UU14314083; POINT-OF-CARE USER ID 612031313
[2017-09-05 14:11] LABS: POINT-OF-CARE METER ID UU14314083
[2017-09-05 14:12] LABS: POINT-OF-CARE METER ID UU14162636
== END 2017-09-05 11:45 | disposition left against medical advice (07) | DRG 698 ==
LOC: EME → EDBD 21:33 → EME 21:33 → 4WEST 23:51 → EDOF 23:51 → ENRESERV 23:52 → 4WEST 09-04 01:58
PROVIDERS: Emergency Medicine; Hospitalist; Internal Medicine
PROC: 5A1945Z Respiratory Ventilation, 24-96 Consecutive Hours (ICD-10-PCS; principal; 2017-09-03)
DX: T83.511A Infection and inflammatory reaction due to indwelling urethral catheter, initial encounter (principal); A41.9 Sepsis, unspecified organism; G82.50 Quadriplegia, unspecified; Z99.11 Dependence on respirator [ventilator] status; J96.11 Chronic respiratory failure with hypoxia; E87.2 Acidosis; T17.890A Other foreign object in other parts of respiratory tract causing asphyxiation, initial encounter; N18.9 Chronic kidney disease, unspecified; N39.0 Urinary tract infection, site not specified; G89.29 Other chronic pain; K52.9 Noninfective gastroenteritis and colitis, unspecified; I12.9 Hypertensive chronic kidney disease with stage 1 through stage 4 chronic kidney disease, or unspecified chronic kidney disease; E11.22 Type 2 diabetes mellitus with diabetic chronic kidney disease; D64.9 Anemia, unspecified; Z91.19 Patient's noncompliance with other medical treatment and regimen; Z93.0 Tracheostomy status; Z79.4 Long term (current) use of insulin; Z79.51 Long term (current) use of inhaled steroids
CPT/HCPCS: 36600; 71010; 80048; 80053; 81003; 82803; 82948; 83605; 83880; 84484; 85025; 85027; 87040; 87070; 87077; 87081; 87086; 87186; 87205; 87502; 87641; 93005; 94002; 94003; 94640; 99212; 99281; 99285; J0456; J1650; J1815; J2543; J7030; J7040; J7050; J7120

== ENCOUNTER → 2017-09-12 | Outpatient (CLI) | payer OTHER ==
[~2017-09-12] MED LIST changes: +MAGNESIUM400 M1 PO; +PROCARDIA XL90 MG PO; +SORE THROAT LO1 EAC2 MM; +VITAMIN D-32000 UNI2 PO
== END ==
LOC: RAD 09:00
DX: J98.11 Atelectasis (principal); N28.1 Cyst of kidney, acquired; R91.8 Other nonspecific abnormal finding of lung field; Z92.21 Personal history of antineoplastic chemotherapy
CPT/HCPCS: 71260; 74177; 94799

== ENCOUNTER 2017-10-08 19:05 | Inpatient (IN) | payer OTHER ==
[~2017-10-08] VITALS: Ht 162.6 cm; Wt 61.7 kg
[2017-10-08 19:38] LABS: BICARBONATE 13.8 mEq/L (22-26); CARBOXY HGB 0.6 % (0-5); METHEMOGLOBIN 0.2 % (0-1.5); PCO2 30 mm Hg (35-45); PO2 41 mm Hg (80-100)
[2017-10-08 20:02] LABS: APPEARANCE CLOUDY ((CLEAR)); BILIRUBIN NEGATIVE; BLOOD SMALL; COLOR YELLOW ((YELLOW)); GLUCOSE (STRIP) NEGATIVE; KETONES NEGATIVE; LEUKOCYTES LARGE; NITRITE POSITIVE; PROTEIN (STRIP) 100; UROBILINOGEN 0.2 MG/DL (0.2-1.0)
[2017-10-08 20:33] LABS: pH 7.27 (7.35-7.45)
[2017-10-08 20:53] LABS: HEMATOCRIT 26.8 % (36.0-46.0); HEMOGLOBIN 8.7 G/DL (11.9-15.5); MCH 31.2 PG (29.0-34.0); MCHC 32.5 G/DL (30.0-36.0); MCV 96.1 FL (83-99); PLATELET COUNT 456 K/uL (156-360); RBC DIS.WIDTH-CV 18.3 % (11.8-14.6); RBC DIS.WIDTH-SD 64.4 % (39-53); RED BLOOD COUNT 2.79 M/uL (3.80-5.20); WHITE BLOOD COUNT 9.8 K/uL (4.1-10.2)
[2017-10-08 21:02] LABS: CHLORIDE 118 mEq/L (99-109); POTASSIUM 4.4 mEq/L (3.7-5.4); SODIUM 140 mEq/L (136-147)
[2017-10-08 21:04] LABS: GLUCOSE 80 mg/dL (70-99)
[2017-10-08 21:07] LABS: CREATININE 1.3 mg/dL (0.6-1.3); GFR ESTIMATE (CALCULATED) 45 mL/min/
[2017-10-08 21:08] LABS: BACTERIA 3+ /HPF; CALCIUM OXALATE CRYSTALS 4+ /HPF; EPITHELIAL CELLS 2+ /HPF; MUCUS NONE SEEN /LPF; UCUL ADDED? YES; WHITE BLOOD CELLS TNTC /HPF (0-5)
[2017-10-08 21:08] LABS: UREA NITROGEN (BUN) 53 mg/dL (9-23)
[2017-10-08 21:16] LABS: TROP-I INTERPRETATION NEGATIVE; TROPONIN-I < 0.01 ng/mL (0.0-0.30)
[2017-10-08 22:58] LABS: LIPASE 90 U/L (1.0-51.0)
[2017-10-08 23:14] LABS: BASOPHIL (%) 0.4 % (0-1); EOSINOPHIL (%) 4.1 % (0-5); EOSINOPHIL COUNT 0.4 K/uL (0-0.3); IMMATURE GRANULOCYTE (%) 3.8 % (0.0-0.7); LYMPHOCYTE (%) 24.6 % (15-42); LYMPHOCYTE COUNT 2.3 K/uL (1.0-2.8); MONOCYTE (%) 6.4 % (3-12); MONOCYTE COUNT 0.6 K/uL (0-0.8); NEUTROPHIL (%) 60.7 % (45-76); NEUTROPHIL COUNT 5.8 K/uL (1.8-6.4); TOTAL PROTEIN 6.4 g/dL (6.4-8.3)
[2017-10-08 23:16] LABS: TOTAL BILIRUBIN 0.3 mg/dL (0.0-1.0)
[2017-10-08 23:17] LABS: ALKALINE PHOSPHATASE 71 IU/L (3-129)
[2017-10-08 23:19] LABS: AST (GOT) 33 IU/L (2-34)
[2017-10-08 23:20] LABS: ALT (GPT) 38 IU/L (3-49)
[2017-10-09] VITALS (8 sets, daily range): BP systolic 94–158; BP diastolic 47–93
[2017-10-09 02:45] LABS: CHLORIDE 120 mEq/L (99-109); SODIUM 145 mEq/L (136-147)
[2017-10-09 02:47] LABS: GLUCOSE 68 mg/dL (70-99)
[2017-10-09 02:51] LABS: CREATININE 1.3 mg/dL (0.6-1.3); GFR ESTIMATE (CALCULATED) 45 mL/min/; UREA NITROGEN (BUN) 56 mg/dL (9-23)
[2017-10-09 14:28] LABS: C DIFF TOXIN NEGATIVE (NEGATIVE)
[2017-10-10] VITALS: BP 131/90
[2017-10-10 04:00] VITALS: BP 164/81
[2017-10-10 08:00] VITALS: BP 158/82
[2017-10-10] MEDS ORDERED: KLOR-CON M2020 MEQ PO (08:57)
[2017-10-10] MEDS ORDERED: LOPERAMIDE2 MG PO (09:02)
[2017-10-10] MEDS ORDERED: DECARA50000 UNIT PO (09:02)
[2017-10-10 10:01] LABS: CHLORIDE 109 MEQ/L (99-109); CREATININE 1.3 MG/DL (0.6-1.3); GFR ESTIMATE (CALCULATED) 45 mL/min/; SODIUM 141 MEQ/L (136-147); UREA NITROGEN (BUN) 35 mg/dL (9-23)
[2017-10-10 10:02] LABS: GLUCOSE 87 mg/dL (70-99); POTASSIUM 3.4 MEQ/L (3.7-5.4)
[2017-10-10] MEDS ORDERED: LOPRESSOR25 MG PO (11:09)
[2017-10-10] MEDS ORDERED: BACTRIM,SEPT1 TABLET PO (11:10)
[2017-10-10 12:00] VITALS: BP 163/83
== END 2017-10-10 12:52 | DRG 698 ==
LOC: EME → EDBD 19:05 → EME 19:05 → EDOF 22:28 → ENRESERV 22:30 → CANRESERV 22:30 → EDOF 22:38 → ENRESERV 22:40 → EDOF 10-09 02:15 → 4WEST 10-09 03:33
PROVIDERS: Emergency Medicine; Family Medicine; Hospitalist
PROC: 5A1945Z Respiratory Ventilation, 24-96 Consecutive Hours (ICD-10-PCS; principal; 2017-10-08)
DX: T83.511A Infection and inflammatory reaction due to indwelling urethral catheter, initial encounter (principal); N39.0 Urinary tract infection, site not specified; Y84.6 Urinary catheterization as the cause of abnormal reaction of the patient, or of later complication, without mention of misadventure at the time of the procedure; G93.40 Encephalopathy, unspecified; T83.091A Other mechanical complication of indwelling urethral catheter, initial encounter; E86.0 Dehydration; E87.2 Acidosis; G82.50 Quadriplegia, unspecified; J96.10 Chronic respiratory failure, unspecified whether with hypoxia or hypercapnia; Z93.0 Tracheostomy status; Z99.11 Dependence on respirator [ventilator] status; N31.9 Neuromuscular dysfunction of bladder, unspecified; D64.9 Anemia, unspecified; E11.9 Type 2 diabetes mellitus without complications; E78.5 Hyperlipidemia, unspecified; I10 Essential (primary) hypertension; G43.909 Migraine, unspecified, not intractable, without status migrainosus; J45.909 Unspecified asthma, uncomplicated; R19.7 Diarrhea, unspecified; F41.9 Anxiety disorder, unspecified; F32.9 Major depressive disorder, single episode, unspecified; F60.3 Borderline personality disorder; Z79.4 Long term (current) use of insulin; Z87.440 Personal history of urinary (tract) infections
CPT/HCPCS: 36600; 70450; 71045; 74176; 80048; 80053; 81003; 82803; 82948; 83605; 83690; 84484; 85025; 85025 91; 85027; 87040; 87077; 87081; 87086; 87186; 87493; 87502; 87641; 93005; 94002; 94003; 94640; 94640 76; 94760; 99202; 99281; 99285; J0696; J1650; J1815; J2060; J2543; J3370; J7050

== ENCOUNTER 2017-10-21 21:50 | Emergency (ER) | payer OTHER ==
[~2017-10-21] VITALS: Ht 152.4 cm; Wt 68.1 kg
[~2017-10-21 21:50] MED LIST changes: +DECARA50000 UNIT PO; +KLOR-CON M2020 MEQ PO; +LOPERAMIDE2 MG PO; +LOPRESSOR25 MG PO
[2017-10-21 22:34] LABS: HEMATOCRIT 25.7 % (36.0-46.0); HEMOGLOBIN 8.3 G/DL (11.9-15.5); MCH 31.1 PG (29.0-34.0); MCHC 32.3 G/DL (30.0-36.0); MCV 96.3 FL (83-99); NRBC (%) 0.5 /100 WBC (0-0); RBC DIS.WIDTH-CV 19.5 % (11.8-14.6); RBC DIS.WIDTH-SD 63.7 % (39-53); RED BLOOD COUNT 2.67 M/uL (3.80-5.20); WHITE BLOOD COUNT 9.6 K/uL (4.1-10.2)
[2017-10-21 22:42] LABS: ALBUMIN 3.5 g/dL (3.2-4.8)
[2017-10-21 22:43] LABS: CHLORIDE 112 mEq/L (99-109); SODIUM 137 mEq/L (136-147)
[2017-10-21 22:45] LABS: GLUCOSE 198 mg/dL (70-99); TOTAL PROTEIN 8.6 g/dL (6.4-8.3)
[2017-10-21 22:47] LABS: TOTAL BILIRUBIN 0.2 mg/dL (0.0-1.0)
[2017-10-21 22:48] LABS: ALKALINE PHOSPHATASE 81 IU/L (3-129)
[2017-10-21 22:49] LABS: CREATININE 1.6 mg/dL (0.6-1.3); GFR ESTIMATE (CALCULATED) 35 mL/min/
[2017-10-21 22:50] LABS: AST (GOT) 28 IU/L (2-34)
[2017-10-21 22:52] LABS: ALT (GPT) 27 IU/L (3-49)
[2017-10-21 22:53] LABS: UREA NITROGEN (BUN) 43 mg/dL (9-23)
[2017-10-21 22:57] LABS: TROP-I INTERPRETATION NEGATIVE; TROPONIN-I < 0.01 ng/mL (0.0-0.30)
[2017-10-21 23:03] LABS: POTASSIUM 6.3 MEQ/L (3.7-5.4)
[2017-10-21 23:30] LABS: BASOPHIL (%) 0.5 % (0-1); BASOPHIL COUNT 0.1 K/uL (0-0.1); EOSINOPHIL (%) 0.4 % (0-5); IMMATURE GRANULOCYTE (%) 1.3 % (0.0-0.7); LYMPHOCYTE (%) 20.7 % (15-42); MONOCYTE (%) 3.8 % (3-12); MONOCYTE COUNT 0.4 K/uL (0-0.8); NEUTROPHIL (%) 73.3 % (45-76); NEUTROPHIL COUNT 6.9 K/uL (1.8-6.4); PLATELET CLUMPS PRESENT - PLATELET COUNT APPEARS ADQ.
[2017-10-22 01:14] LABS: PLATELET COUNT UNABLE TO REPORT K/uL (156-360)
[2017-10-22 04:31] VITALS: BP 139/70
== END 2017-10-22 04:42 ==
LOC: EME → EDBD 21:50 → EME 21:50
PROVIDERS: Emergency Medicine
DX: T17.590A Other foreign object in bronchus causing asphyxiation, initial encounter (principal); E87.5 Hyperkalemia; G82.50 Quadriplegia, unspecified; Z93.0 Tracheostomy status; J45.909 Unspecified asthma, uncomplicated; E11.9 Type 2 diabetes mellitus without complications; F41.9 Anxiety disorder, unspecified; F32.9 Major depressive disorder, single episode, unspecified; F31.9 Bipolar disorder, unspecified; Z79.4 Long term (current) use of insulin; Z90.49 Acquired absence of other specified parts of digestive tract
CPT/HCPCS: 71045; 80053; 84484; 85025; 87070; 87077; 87186; 87205; 93005; 94002; 94640; 99281; 99284

== ENCOUNTER → 2017-11-17 | Outpatient (CLI) | payer OTHER | END | disposition designated cancer center or children's hospital (05) | LOC: AMB 14:30 | DX: N04.9 Nephrotic syndrome with unspecified morphologic changes (principal); I10 Essential (primary) hypertension; C64.9 Malignant neoplasm of unspecified kidney, except renal pelvis; Z92.21 Personal history of antineoplastic chemotherapy | CPT/HCPCS: 84156; 94002; 99212 ==

== ENCOUNTER → 2018-01-03 | Outpatient (CLI) | payer OTHER | END | disposition designated cancer center or children's hospital (05) | LOC: AMB 15:12 | DX: C64.9 Malignant neoplasm of unspecified kidney, except renal pelvis (principal); I10 Essential (primary) hypertension | CPT/HCPCS: 94002; 99211 ==

== ENCOUNTER → 2018-01-16 | Outpatient (CLI) | payer OTHER | LOC: RAD 10:00 | DX: N28.89 Other specified disorders of kidney and ureter (principal); Q61.02 Congenital multiple renal cysts; E04.2 Nontoxic multinodular goiter; J90 Pleural effusion, not elsewhere classified; I25.10 Atherosclerotic heart disease of native coronary artery without angina pectoris; I87.8 Other specified disorders of veins; M47.9 Spondylosis, unspecified; M85.80 Other specified disorders of bone density and structure, unspecified site; M62.50 Muscle wasting and atrophy, not elsewhere classified, unspecified site; K57.30 Diverticulosis of large intestine without perforation or abscess without bleeding; Z90.49 Acquired absence of other specified parts of digestive tract; Z93.0 Tracheostomy status | CPT/HCPCS: 71260; 74177 ==

== ENCOUNTER 2018-01-21 06:33 | Emergency (ER) | payer OTHER ==
[~2018-01-21] VITALS: Ht 160 cm; Wt 64.9 kg
[2018-01-21 07:54] LABS: HEMATOCRIT 20.8 % (36.0-46.0); HEMOGLOBIN 7.1 G/DL (11.9-15.5); MCH 30.5 PG (29.0-34.0); MCHC 34.1 G/DL (30.0-36.0); MCV 89.3 FL (83-99); PLATELET COUNT 299 K/uL (156-360); RBC DIS.WIDTH-SD 54.9 % (39-53); RED BLOOD COUNT 2.33 M/uL (3.80-5.20); WHITE BLOOD COUNT 16.5 K/uL (4.1-10.2)
[2018-01-21 08:05] LABS: CHLORIDE 99 mEq/L (99-109); POTASSIUM 4.2 mEq/L (3.7-5.4); SODIUM 127 mEq/L (136-147)
[2018-01-21 08:06] LABS: GLUCOSE 351 mg/dL (70-99)
[2018-01-21 08:10] LABS: CREATININE 1.3 mg/dL (0.6-1.3); GFR ESTIMATE (CALCULATED) 45 mL/min/
[2018-01-21 08:11] LABS: UREA NITROGEN (BUN) 52 mg/dL (9-23)
[2018-01-21 08:18] LABS: TROP-I INTERPRETATION NEGATIVE; TROPONIN-I 0.04 ng/mL (0.0-0.30)
[2018-01-21 13:17] VITALS: BP 120/70
[2018-01-21 13:23] VITALS: BP 132/77
[2018-01-21 13:29] VITALS: BP 122/67
[2018-01-21 15:16] VITALS: BP 134/71
[2018-01-21 17:03] VITALS: BP 139/73
== END 2018-01-21 17:05 ==
LOC: EME → EDBD 06:33 → EME 06:33
PROVIDERS: Nurse Practitioner Family
PROC: 30233N1 Transfusion of Nonautologous Red Blood Cells into Peripheral Vein, Percutaneous Approach (ICD-10-PCS; principal; 2018-01-21)
DX: D64.9 Anemia, unspecified (principal); R06.02 Shortness of breath; Z99.11 Dependence on respirator [ventilator] status; E87.1 Hypo-osmolality and hyponatremia; E11.65 Type 2 diabetes mellitus with hyperglycemia; R00.0 Tachycardia, unspecified; R94.31 Abnormal electrocardiogram [ECG] [EKG]; J96.10 Chronic respiratory failure, unspecified whether with hypoxia or hypercapnia; N31.9 Neuromuscular dysfunction of bladder, unspecified; G82.50 Quadriplegia, unspecified; J45.909 Unspecified asthma, uncomplicated; F60.3 Borderline personality disorder; F41.9 Anxiety disorder, unspecified; F32.9 Major depressive disorder, single episode, unspecified; F31.9 Bipolar disorder, unspecified; Z79.4 Long term (current) use of insulin; Z86.19 Personal history of other infectious and parasitic diseases; Z90.49 Acquired absence of other specified parts of digestive tract; Z85.528 Personal history of other malignant neoplasm of kidney; Z88.1 Allergy status to other antibiotic agents
CPT/HCPCS: 71045; 80048; 81003; 84484; 85027; 86850; 86900; 86901; 86920; 93005; 94002; 99281; 99285; P9016

== ENCOUNTER → 2018-03-03 | Outpatient (CLI) | payer OTHER | LOC: AMB 14:00 | DX: C64.2 Malignant neoplasm of left kidney, except renal pelvis (principal); G82.50 Quadriplegia, unspecified; E11.9 Type 2 diabetes mellitus without complications; I10 Essential (primary) hypertension; J96.10 Chronic respiratory failure, unspecified whether with hypoxia or hypercapnia; Z79.4 Long term (current) use of insulin; Z99.11 Dependence on respirator [ventilator] status | CPT/HCPCS: 99213 ==